=== PATIENT | female | born 1965 | race Caucasian/White ===

== ENCOUNTER 2023-02-20 17:27 | Emergency (ER) | payer OTHER ==
[~2023-02-20] VITALS: Ht 162.6 cm; Wt 56.7 kg
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
[2023-02-20] MEDS ORDERED: IBUPROFEN 600 MG TABLET ONE (18:24)
[2023-02-20] MEDS ORDERED: ACETAMINOPHEN ES 500 MG TABLET ONE (18:24)
[2023-02-20] MEDS ORDERED: ACETAMINOPHEN ES 500 MG TABLET PO ONE (18:30)
[2023-02-20] MEDS ORDERED: IBUPROFEN 600 MG TABLET PO ONE (18:30)
[2023-02-20] MEDS ORDERED: IBUP-1953 PO (18:49)
[2023-02-20] MEDS ORDERED: HYDR-3972 PO (18:49)
[2023-02-20 20:22] VITALS: BP 108/60
== END 2023-02-20 20:22 | disposition home or self-care (01) ==
LOC: ER 17:40
DX: S82.142A Displaced bicondylar fracture of left tibia, initial encounter for closed fracture (principal); S39.012A Strain of muscle, fascia and tendon of lower back, initial encounter; S50.01XA Contusion of right elbow, initial encounter; V09.9XXA Pedestrian injured in unspecified transport accident, initial encounter; Y93.01 Activity, walking, marching and hiking; Y92.410 Unspecified street and highway as the place of occurrence of the external cause; Y99.8 Other external cause status
CPT/HCPCS: 72131-TC; 73564-TC